=== PATIENT | male | born 1975 | race Caucasian/White ===

== ENCOUNTER 2025-08-22 08:30 | Outpatient (CLI) | payer OTHER, SELFPAY ==
--- NOTE | ~2025-08-22 | CT_ITS ---
EXAMINATION:CT chest high resolution wo or DATE: 08/22/2025 08:39 INDICATION: Solitary pulmonary nodule. TECHNIQUE: Computed tomography (CT) of the chest was performed without intravenous contrast. Automated exposure control and iterative reconstruction technique were employed. The dose-length product (DLP) was 272.51 mGy-cm. COMPARISON: None. FINDINGS: There is moderate emphysema. There is septal thickening in the lungs with a peripheral and lower lung predominance associated with groundglass opacities. There is a 3 mm nodule in left lower lobe, likely benign. Calcified right lung nodules and calcified right hilar and mediastinal lymph nodes are consistent with old granulomatous disease. No pleural effusion. The heart size is normal. No pericardial effusion. There are changes of cholecystectomy. Calcified abdominal lymph nodes are consistent with old granulomatous disease. Calcifications in the spleen are consistent with old granulomatous disease. There are bridging endplate osteophytes at multiple levels in the spine, consistent with diffuse idiopathic skeletal hyperostosis (DISH). IMPRESSION: 1. Diffuse lung disease, consistent with a combination of moderate emphysema and chronic interstitial lung disease in a pattern of usual interstitial pneumonia (UIP) versus nonspecific interstitial pneumonia (NSIP). Reviewed, dictated and finalized at location E. IMPRESSION: 1. Diffuse lung disease, consistent with a combination of moderate emphysema an d chronic interstitial lung disease in a pattern of usual interstitial pneumoni a (UIP) versus nonspecific interstitial pneumonia (NSIP).
--- OUTSIDE RECORDS SUMMARY | 2025-08-22 08:41 | XMS_ITS | Clinical Summary ---
Author Organization [facility] Address [address] [place] [id number] Care Team Providers Care Lens Examiner Name Role Phone Unknown, Notinfile Primary Care Provider Unavail able Allergies Active Allergy Reactions Criticality Noted Date Comments Adhesive Unknown 12/24/2015 Medications aspirin 81 mg chewable tablet Aspirin Child 81 mg; 1 by mouth every day ; 0; -Jul-2006; Active 08/13/[address] (CYMBALTA) 30 mg capsule TAKE 1 CAPSULE BY MOUTH DAILY FOR 1 WEEK, THEN TAKE 2 CAPSULES DAILY 11/11/2019 Active famotidine (PEPCID) 20 mg tablet Take 20 mg by mouth 2 (two) times a day Active metFORMIN (GLUCOPHAGE) 1,000 mg tablet Take 1,000 mg by mouth every 12 (twelve) hours 11/11/2019 Active montelukast (SINGULAIR) 10 mg tablet 08/05/2019 Active traMADoL (ULTRAM) 50 mg tablet Take 50 mg by mouth every 6 (six) hours as needed 11/24/2019 Active Active Problems No known active problems Surgical History Surgery Date Site/Laterality Comments HIP SURGERY SHOULDER SURGERY CHOLECYSTECTOMY Medical History Medical History Date Comments Asthma Hypertension Diabetes mellitus Hypercholesteremia Family History Medical History Relation Name Comments No Known Problems Brother No Known Problems Daughter No Known Problems Father No Known Problems Mother No Known Problems Sister No Known Problems Son Relation Name Status Comments Brother Daughter Father Mother Sister Son Social History Tobacco Use Types Packs/Day Years Used Date Smoking Tobacco: Never Assessed Sex and Gender Information Value Date Recorded Sex Assigned at Not on file Legal Sex Male 8:57 AM CDT Gender Identity Not on file Sexual Orientation Not on file Obstetrics History Last Filed Vital Signs Vital Sign Reading Time Taken Comments Blood Pressure 152/98 07/19/2020 8:25 AM CDT Pulse 83 07/19/2020 8:25 AM CDT Temperature 36.3 C (97.3 F) 07/19/2020 8:25 AM CDT Respiratory Rate - - Oxygen Saturation - - Inhaled Oxygen Concentration - - Weight 99.8 kg (220 lb) 07/19/2020 8:25 AM CDT Height 177.8 cm (5' 10) 07/19/2020 8:25 AM CDT Body Mass Index 31.57 07/19/2020 8:25 AM CDT Plan of Treatment Not on file Insurance Care Teams Lens Examiner Relationship Specialty Start Date End Date Unknown, Notinfile PCP - General 07/19/20
--- OUTSIDE RECORDS SUMMARY | 2025-08-22 08:41 | XMS_ITS | Clinical Summary ---
Author Organization [facility] Address [address] [place] [address] Phone Care Team Providers Care Scraper Operator Name Role Phone Hiro Pagan MD Unavailable [phone] Minoo Rhodes MD Primary Care Provide r Allergies No known active allergies Medications atorvastatin (LIPITOR) 40 MG Tablet Take 40 mg by mouth. 3 Active Ozempic, 2 MG/DOSE, 8 MG/3ML Solution Pen-injector INJECT 2 MG INTO THE SKIN ONCE A WEEK 3 Active pioglitazone (ACTOS) 15 MG Tablet Take 15 mg by mouth daily. 2 Active glipiZIDE (GLUCOTROL) 5 MG Tablet One tablet daily with breakfast 2 Active Jardiance 25 MG Tablet Take 25 mg by mouth daily. 2 Active omeprazole (PriLOSEC) 20 MG CAPSULE DELAYED RELEASE Take 20 mg by mouth. Active albuterol 108 (90 Base) MCG/ACT Aerosol Solution take 1-2 Puffs by inhalation. 0 Active aspirin 81 MG Chewable Tablet Aspirin Child 81 mg; 1 by mouth every day ; 0; -Jul-2006; Active 6 Active Family History Medical History Relation Name Comments Diabetes Father Lupus Mother Relation Name Status Comments Child 1 Alive Child 2 Alive Child 3 Alive Child 4 Alive Father Alive Mother Alive Sister 1 Alive Sister 2 Alive Social History Tobacco Use Types Packs/Day Years Used Date Smoking Tobacco: Every Day Cigarettes Smokeless Tobacco: Never Tobacco Cessation:Ready to Q uit: Not Asked; Counseling Given: Not Answered Alcohol Use Standard Drinks/Week Comments Yes 0 (1 standard drink = 0.6 oz pur e alcohol) Sex and Gender Information Value Date Recorded Sex Assigned at Not on file Legal Sex Male 5:07 PM CDT Gender Identity Not on file Sexual Orientation Not on file Last Filed Vital Signs Vital Sign Reading Time Taken Comments Blood Pressure 128/76 02/19/2023 1:02 PM CDT Pulse 84 02/19/2023 1:02 PM CDT Temperature 36.8 C (98.2 F) 02/19/2023 1:02 PM CDT Respiratory Rate 18 02/19/2023 1:02 PM CDT Oxygen Saturation 98% 02/19/2023 1:02 PM CDT Inhaled Oxygen Concentration - - Weight 89.2 kg (196 lb 9.6 oz) 02/19/2023 1:02 P M CDT Height 177.8 cm (5' 10) 02/19/2023 1:02 PM CDT Body Mass Index 28.21 02/19/2023 1:02 PM CDT Plan of Treatment Health Maintenance Due Date Last Done Comments Hepatitis C Virus (HCV) Screening 1974 Hepatitis B Immunization (1 of 3 - 19+ 3-dose series) 1993 Cologuard 2019 Colonoscopy 2019 Colorectal Cancer Screening 2019 Immunochemical Fecal Occult Blood 2019 Pneumococcal Immunization (5 0+ years) (2 of 2 - PCV) 2024 04/19/2019, 04/16/2006 Zoster Immunization (1 of 2) 2024 Influenza Immunization (#1) 2025 07/31/2020 SARS-COV-2 Immunization (3 - 2024- season) 2025 02/22/2021, 01/23/2021 Respiratory Syncytial Virus (RSV) Immunization (Adult) (1 - 1-dose 75+ series) 2049 TdaP Immunization Completed 04/16/2006 DTaP/Tdap/Td Immunization Discontinued 2016, 07/20/2017, 04/16/2006 Pneumococcal Immunization Combined Discontinued 04/19/2019, 04/16/2006 Human Papillomavirus (HPV) Immunization Aged Out No longer eligible based on patient's age to complete this topic Meningococcal Immunization (ACWY) Aged Out No longer eligible based on patient's age to complete this topic Rotavirus Immunization Aged Out No lo nger eligible based on patient's age to complete this topic Insurance [facility] Care Teams Scraper Operator Relationship Specialty Start Date End Date Minoo Rhodes MD [address] [place] [address] PCP - General Family Medicine 01/27/23 Hiro Pagan MD [address] [place] [phone] Consulting Physician Oncology 01/27/23
--- OUTSIDE RECORDS SUMMARY | 2025-08-22 08:41 | XMS_ITS | Clinical Summary ---
Author Organization [email or web address] Address [address] [place] [address] Care Team Providers Care Switchboard Operator Assistant Name Role Phone Unavailable Primary Care Provider Unavailabl e Source Comments [email or web address],non-owned Affiliates and Associated Physician Practices is amultiple site organization consisting of ambulatory clinics and hospital sitesin [place], [place] and [place]. This disclosure is being madepursuant to the Care Everywhere program and may not contain all information available regarding this patient. Last updated 18.[email or web address] Social History Tobacco Use Types Packs/Day Years Used Date Smoking Tobacco: Never Assessed Sex and Gender Information Value Date Recorded Sex Assigned at Not on file Legal Sex Male 4:10 PM CDT Gender Identity Not on file Sexual Orientation Not on file Plan of Treatment Health Maintenance Due Date Last Done Comments COLOGUARD (AGES 45-75) - COL ON CA SCREENING 1974 COLON MONITORING 1974 COLONOSCOPY - COLON CA SCREENING 1974 CT COLONOGRAPHY - COLON CA SCREENING 1974 Colorectal Cancer Screening 1974 FIT - COLON CA SCREENING 1974 FLEX SIG - COLON CA SCREENING 1974 LIPID TESTING 1974 HIV SCREENING 1989 HEPATITIS C SCREENING 06/13/1992 DTAP/TDAP/TD VACCINES (1 - Tdap) 1993 HEPATITIS B VACCINE (1 of 3 - 19+ 3-dose series) 1993 PNEUMOCOCCAL VACCINE 50+ (1 of 1 - PCV) 2024 ZOSTER VACCINE (1 of 2) 2024 DEPRESSION SCREENING 11/16/2024 COVID-19 VACCINE (1 - 2023-2 5 season) 2025 INFLUENZA VACCINE (#1) 2025 HIB VACCINE Aged Out No longer eligi ble based on patient's age to complete this topic HPV VACCINE Aged Out No longer eligi ble based on patient's age to complete this topic MENINGOCOCCAL (Group B) VACC INE SHARED DECISION-MAKING Aged Out No longer eligibl e based on patient's age to complete this topic MENINGOCOCCAL GROUPS A/C/Y/W VACCINE Aged Out No longer eligible b ased on patient's age to complete this topic Insurance [facility] [id number]
--- OUTSIDE RECORDS SUMMARY | 2025-08-22 08:41 | XMS_ITS | Encounter Summary ---
Author Organization [facility] Address [address] [place] [address] Care Team Providers Care Investment Broker Name Role Phone Unavailable Primary Care Provider Unavailabl e Encounter Details Date Type Department Care Team (Late st Contact Info) Description 03/14/2022 Lab Requisition [facility] [address] [place] [address] Yang Serrano MD [address] [place] [address] Social History Tobacco Use Types Packs/Day Years Used Date Smoking Tobacco: Never Assessed Sex and Gender Information Value Date Recorded Sex Assigned at Not on file Legal Sex Male 4:10 PM CDT Gender Identity Not on file Sexual Orientation Not on file documented as of this encounter Plan of Treatment Not on file documented as of this encounter Procedures Procedure Name Priority Date/Time Associated Diagnosis Comments DERMATOPATHOLOGY Routine 03/13/2022 12:0 0 AM CDT documented in this encounter Results * DERMATOPATHOLOGY (03/13/2022 12:00 AM CDT) Case Report Dermatopathology Report Case: [id number] Authorizing Provider: Yang Serrano MD Collected: 03/13/2022 12:00 AM Ordering Location: [facility] Received: 03/14/2022 04:21 PM Pathologist: Cheri Rosas MD Specimen: Skin, left judaism 4:39 PM CDT DERMATOPATHOLOGY LABORATORY Final Diagnosis Specimen A. SKIN, left judaism: BENIGN VERRUCOUS KERATOSIS, INFLAMED; SUPERFICIAL PORTIONS OF (L82.1) (see microscopic description) 2 4:39 PM CDT DERMATOPATHOLOGY LABORATORY at 1639 CDT Clinical History SK vs. SCC Path# [id number] 2 4:39 PM CDT DERMATOPATHOLOGY LABORATORY Gross Description Specimen A: Received is one formalin filled container labeled with the patient's name and designated left judaism. The specimen consists of a shave biopsy measuring [id number]. Jar 0. 2 4:39 PM CDT DERMATOPATHOLOGY LABORATORY Microscopic Description Specimen A. SKIN, left judaism: Sections show superficial portions of hyperkeratosis, papillomatosis, hypergranulosis, and acanthosis. Inflammatory cells are present within the dermis. These histological findings can be seen in a verruca vulgaris or a seborrheic keratosis. 2 4:39 PM CDT DERMATOPATHOLOGY LABORATORY Disclaimer An external and internal positive and negative controls are appropriate for the histochemical, immunohistochemical and immunofluorescence stain(s) in this case (if any), except where stated explicitly. The performance characteristics of the stain(s) cited in this report were developed and its performance characteristic determined by the Dermatopathology Laboratory at [facility], directed by Dr. Cayla Bear. These tests need not be, and therefore are not, approved by the [place] Food and Drug Administration. The tests are used for clinical purposes. Billing Codes Specimen Charges Stain Charges 68624 1 2 4:39 PM CDT DERMATOPATHOLOGY LABORATORY Embedded Images 2 4:39 PM CDT DERMATOPATHOLOGY LABORATORY Pathology/Cytolog y TISSUE SPECIMEN FROM SKIN / Unknown 03/13/2022 03/14/2022 4:21 PM CDT us Yang Serrano MD LAB - PATHOLOGY/CYTOLOGY ORDER CINDY Final Result DERMATOPATHOLOGY LABORATORY [facility] - Department of Dermatology [address], [address] [phone] documented in this encounter Visit Diagnoses Not on filedocumented in this encounter
== END 2025-08-22 08:31 | disposition home or self-care (01) ==
LOC: CHSIMG 08:31
PROVIDERS: PCP Family Medicine; Visit Provider Family Medicine
DX: R91.1 Solitary pulmonary nodule (principal); J98.4 Other disorders of lung; R91.8 Other nonspecific abnormal finding of lung field
CPT/HCPCS: 71250